=== PATIENT | female | born 1995 | race Caucasian/White ===

== ENCOUNTER 2020-05-25 21:44 | Emergency (ER) | payer OTHER ==
[~2020-05-25] VITALS: Ht 167.6 cm; Wt 110.7 kg
[2020-05-25 22:08] VITALS: Ht 167.6 cm; Wt 110.7 kg
[2020-05-26 01:12] VITALS: BP 120/81
== END 2020-05-26 01:12 | disposition home or self-care (01) ==
LOC: ED 21:44
DX: S05.02XA Injury of conjunctiva and corneal abrasion without foreign body, left eye, initial encounter (principal); Z88.0 Allergy status to penicillin; X58.XXXA Exposure to other specified factors, initial encounter; Y93.89 Activity, other specified; Y92.89 Other specified places as the place of occurrence of the external cause; Y99.8 Other external cause status